=== PATIENT | female | born 1980 | race Hispanic/Latino ===

== ENCOUNTER 2023-02-15 14:32 | Emergency (ER) | payer SELFPAY ==
[~2023-02-15] VITALS: Ht 160 cm; Wt 90.7 kg
[2023-02-15] MEDS ORDERED: MIDAZOLAM HCL 2 MG/2 ML VIAL IV STA (15:08)
[2023-02-15] MEDS ORDERED: ASPIRIN 81 MG CHEW TAB PO ONE (15:15)
[2023-02-15] MEDS ORDERED: METOPROLOL TARTRATE 50 MG TAB PO ONE (15:15)
[2023-02-15] MEDS ORDERED: ACETAMINOPHEN 325 MG TAB PO ONE (15:15)
[2023-02-15 15:44] LABS: BASOPHILS % 0.2 % (0.0-1.0); EOSINOPHILS # (AUTO) 0.1 (0.0-0.4); EOSINOPHILS % 0.7 % (0.0-6.0); HEMATOCRIT 40.3 % (34.2-44.1); HEMOGLOBIN 13.4 g/dL (12.0-16.0); LYMPHOCYTES % 8.6 % (18.0-39.1); MEAN CORPUSCULAR HGB CONC 33.3 g/dL (31-35); MEAN CORPUSCULAR VOLUME 84.3 fL (81-99); MONOCYTES # (AUTO) 0.7 (0.2-0.8); MONOCYTES % 5.7 % (4.4-11.3); NEUTROPHILS # (AUTO) 10.2 (2.1-6.9); NEUTROPHILS % 84.5 % (38.7-80.0); PLATELET COUNT 396 x10e3/uL (140-360); RED BLOOD COUNT 4.78 x10e6/uL (3.6-5.1); RED CELL DISTRIBUTION WIDTH 13.5 % (11.7-14.4)
[2023-02-15 15:51] LABS: CLARITY,URINE CLEAR (CLEAR); COLOR,URINE YELLOW (YELLOW); KETONES,URINE NEGATIVE (NEGATIVE); LEUKOCYTE ESTERASE ,URINE NEGATIVE (NEGATIVE); NITRITE,URINE NEGATIVE (NEGATIVE); PROTEIN,URINE DIPSTICK NEGATIVE (NEGATIVE); URINE UROBILINOGEN 0.2 mg/dL (0.2 - 1)
[2023-02-15 15:56] LABS: STREPTOCOCCUS GRP A ANTIGEN NEGATIVE (NEGATIVE)
[2023-02-15 16:00] LABS: ANION GAP 17.4 mmol/L (8-16); BLOOD UREA NITROGEN 5 mg/dL (7-26); BUN/CREATININE RATIO 7 (6-25); CALCIUM 9.3 mg/dL (8.4-10.2); CARBON DIOXIDE 22 mmol/L (22-29); CHLORIDE 102 mmol/L (98-107); CREATINE KINASE 93 IU/L (29-168); CREATININE, SERUM 0.69 mg/dL (0.57-1.11); GLUCOSE 77 mg/dL (74-118); POTASSIUM 3.4 mmol/L (3.5-5.1); SODIUM 138 mmol/L (136-145)
[2023-02-15 16:02] LABS: ALANINE AMINOTRANSFERASE 63 IU/L (0-55); ALBUMIN 4.2 g/dL (3.5-5.0); ALKALINE PHOSPHATASE 76 IU/L (40-150); BACTERIA,URINE RARE /HPF; BILIRUBIN,DIRECT 0.1 mg/dL (0.0-0.5); LIPASE 7 U/L (8-78); RBC,URINE 0-5 /HPF (0-5); WBC,URINE (MAN) 0-5 /HPF (0-5)
[2023-02-15 16:15] LABS: INFLUENZAE A&B ANTIGEN (RAPID) NEGATIVE (NEGATIVE)
[2023-02-15 16:23] LABS: THYROID STIMULATING HORMONE 0.666 uIU/mL (0.350-4.940)
[2023-02-15] MEDS ORDERED: SODIUM CHLORIDE 0.9% 500ML 500 ML IV ONE (16:45)
[2023-02-15] MEDS ORDERED: POTASSIUM CHLORIDE 10MEQ EA PO STA (16:50)
[2023-02-15] MEDS ORDERED: AMOXICILLIN/CLAVULANATE K 875 MG TAB PO ONE (17:00)
[2023-02-15] MEDS ORDERED: NAPROSYN500 MG PO (17:40)
[2023-02-15] MEDS ORDERED: AUGMENTIN 500-1 EACH PO (17:41)
== END 2023-02-15 18:34 | disposition home or self-care (01) ==
LOC: ER 14:47
DX: U07.1 COVID-19 (principal); I10 Essential (primary) hypertension; J01.90 Acute sinusitis, unspecified
CPT/HCPCS: 36415; 70450; 71045; 80048; 80076; 81001; 82550; 82553; 83518; 83690; 83880; 84436; 84443; 84484; 84702; 85025; 87070; 87400; 99284; J7040; U0002